=== PATIENT | female | born 1950 | race Caucasian/White ===

== ENCOUNTER 2023-06-23 15:53 | Emergency (ER) | payer MEDICARE, SELFPAY ==
[2023-06-23 15:54] VITALS: BP 150/88
--- NOTE | 2023-06-23 16:42 | ED.GENMED ---
History of Present Illness
<ASHLY Clayton - Last Filed: 06/27/23 22:24>
General
Chief Complaint: Urinary Symptoms
Source: patient
Exam Limitations: none
Time Seen by Provider: 06/23/23 16:21
Nursing documentation reviewed up to this point in time: agreed with
Travel History
Have you had any contact with someone who has COVID-19?: No
Do you have any symptoms of coronavirus? Fever > 100 degrees, chills, cough, shortness of breath, sore throat, loss of taste or smell, muscle aches, or headache?: No
History of Present Illness
History of Present Illness:
9-year-old female presents to the ER for evaluation. Patient has a history of MS and self catheterizes. She has had a UTI for the past several days and has been on Macrobid since Tuesday. She is followed by Dr. Romero.
She called the office because of persistent symptoms of burning frequency and was sent here to the ER for evaluation. She reports that they recommend that she have an IV infusion of antibiotics and that her infection is sensitive to ampicillin and
vancomycin.
She denies any fever chills.
Review of Systems
<ASHLY Clayton - Last Filed: 06/27/23 22:24>
Review of Systems
Allergies reviewed?: Yes
All Other Systems: ROS reviewed and negative except as documented in HPI and ROS
Constitutional: Reports no symptoms
Respiratory: Reports no symptoms
Cardiac: Reports no symptoms
ABD/GI: Reports no symptoms; Denies abdominal pain, nausea or vomiting
: Reports dysuria, urgency and discharge; Denies flank pain
Musculoskeletal: Reports no symptoms; Denies back pain
Skin: Reports no symptoms
Neurological: Reports no symptoms
Psychiatric: Reports no symptoms
Phy Exam
<ASHLY Clayton - Last Filed: 06/27/23 22:24>
General Physical Exam
General Presentation: no apparent distress
General age: appears stated age
General Skin: warm and dry
General Habitus: normal
General Mental: alert
Gastrointestinal Exam
Gastrointestinal Exam: soft and other (+ colostomy abdomen soft nontender)
Neurological Exam
Neurological Exam: alert and oriented x3
Musculoskeletal Exam
Musculoskeletal Exam: full ROM
Skin Exam
Skin Exam: normal color and warm/dry
Psychiatric Exam
Psychiatric Exam: normal mood/affect
Course
<ASHLY Clayton - Last Filed: 06/27/23 22:24>
Orders/Labs/Results
Orders:
Orders
06/23/23 17:12
IV Insert/Care/Rem.- Treatment PRN
Straight cath- Treatment ONCE
0.9% Sodium Chloride 1000 ml [Nss] 1,000 ml IV BOLUS
06/23/23 17:26
Complete Blood Count/With Diff Urgent
Comprehensive Metabolic Panel Urgent
06/23/23 18:06
Urinalysis Reflex To Culture Urgent
Date Specimen was Collected: 06/23/23
Time Specimen was Collected: 17:14
Abnormal Lab Results
06/23/23
17:26
Absolute Lymphs (auto) 0.7 L 10^3/uL
(1.2-3.4)
Absolute Monos (auto) 0.0 L 10^3/uL
(0.1-0.6)
Neutrophils % 87.2 H %
(42.2-75.2)
Lymphocytes % 11.2 L %
(20.5-51.1)
Monocytes % 0.7 L %
(1.7-9.3)
Creatinine 0.4 L mg/dL
(0.6-1.0)
Glucose 125 H mg/dl
(70-99)
Alkaline Phosphatase 154 H U/L
(38-126)
06/23/23 17:26
06/23/23 17:26
Vital Signs
Initial and Last Documented VS:
Initial Vital Signs
Temp Pulse Resp BP Pulse Ox
98.2 F 107 16 150/88 98
06/23/23 15:54 06/23/23 15:54 06/23/23 15:54 06/23/23 15:54 06/23/23 15:54
Last Documented Vital Signs
Temp Pulse Resp BP Pulse Ox
98.2 F 72 18 115/70 98
06/23/23 15:54 06/23/23 19:12 06/23/23 19:12 06/23/23 19:12 06/23/23 19:12
<Tien Sidhu PA-C - Last Filed: 06/23/23 19:18>
Orders/Labs/Results
Orders:
Orders
06/23/23 17:12
IV Insert/Care/Rem.- Treatment PRN
Straight cath- Treatment ONCE
0.9% Sodium Chloride 1000 ml [Nss] 1,000 ml IV BOLUS
06/23/23 17:26
Complete Blood Count/With Diff Urgent
Comprehensive Metabolic Panel Urgent
06/23/23 18:06
Urinalysis Reflex To Culture Urgent
Date Specimen was Collected: 06/23/23
Time Specimen was Collected: 17:14
Abnormal Lab Results
06/23/23
17:26
Absolute Lymphs (auto) 0.7 L 10^3/uL
(1.2-3.4)
Absolute Monos (auto) 0.0 L 10^3/uL
(0.1-0.6)
Neutrophils % 87.2 H %
(42.2-75.2)
Lymphocytes % 11.2 L %
(20.5-51.1)
Monocytes % 0.7 L %
(1.7-9.3)
Creatinine 0.4 L mg/dL
(0.6-1.0)
Glucose 125 H mg/dl
(70-99)
Alkaline Phosphatase 154 H U/L
(38-126)
06/23/23 17:26
06/23/23 17:26
Vital Signs
Initial and Last Documented VS:
Initial Vital Signs
Temp Pulse Resp BP Pulse Ox
98.2 F 107 16 150/88 98
06/23/23 15:54 06/23/23 15:54 06/23/23 15:54 06/23/23 15:54 06/23/23 15:54
Last Documented Vital Signs
Temp Pulse Resp BP Pulse Ox
98.2 F 72 18 115/70 98
06/23/23 15:54 06/23/23 19:12 06/23/23 19:12 06/23/23 19:12 06/23/23 19:12
<ASHLY Clayton - Last Filed: 06/27/23 22:24>
MDM/Problems Addressed
MDM/Problems Addressed:
Patient is a 72-year-old female with MS with history of chronic UTIs. Patient had a UTI for the past 5 days been on Macrobid but still having dysuria. She reports she was sent by her urology office nurses for IV antibiotics.
Patient denies any nausea vomiting fever chills. Patient is afebrile here we will check labs along with urine.
Care of this patient at this time transferred to [facility]
<Tien Sidhu PA-C - Last Filed: 06/23/23 19:18>
*Critical Care Note
Total Time (30-74mins, 75-104mins- exclusive of procedures): Not Applicable
<Tien Sidhu PA-C - Last Filed: 06/23/23 19:18>
Patient Management
Discussion with other providers: [employer] Installation [employer]ic
Escalation/DeEscalation of care consider admission/obs:
06/23/2023 1800 PM: Patient received in signout pending urinalysis. Patient presented to the emergency department with irritation while urinating. Notes that she self caths due to frequent UTIs and urinary leakage and history of MS. Patient
currently on Macrobid for UTI. Lab work is all reassuring without any signs of leukocytosis. Urinalysis is negative without any abnormalities. I discussed these findings with the patient. At this time I did not recommend an antibiotic change but
would prescribe Pyridium for symptoms. I did notify patient's urogynecologist, Dr. Lazcano, and patient states that she can follow-up with her next week if needed.
ED Attending Note
<ASHLY Clayton - Last Filed: 06/27/23 22:24>
-
Portions of this chart may have been created with voice recognition software.� Occasional wrong word or��sound alike� substitutions may have occurred due to the inherent limitations of voice recognition software.
Discharge Plan
Departure
Patient Disposition: Home (Routine Discharge)
Date of Disposition: 06/23/23
Time of Disposition: 18:57
Patient with high blood pressure during this ER visit?: Yes
Discharge Problem:
Dysuria
Instructions: Dysuria, Adult (DC)
Prescriptions:
New
phenazopyridine [Pyridium] 200 mg tablet
200 mg PO PC Qty: 10 0RF
Referrals:
Jenniffer Lazcano DO [Active] -
Leatha Tavarez MD [Family Provider] -
Interventions
Interventions:
*Risk Screen - Suicide Last Done: 06/23/23 16:45
*General Assessment Last Done: 06/23/23 15:54
*Neglect/Abuse Screening Last Done: 06/23/23 16:45
ED- Fall Risk Assessment Last Done: 06/23/23 17:20
*ED COVID-19 Vaccine History Last Done: 06/23/23 15:54
*Nursing Disposition Last Done: 06/23/23 19:13
ED-Female Genitourinary Assessment Last Done: 06/23/23 17:20
Discharge Date and Time
Discharge Date/Time: 06/23/23 19:13
[2023-06-23] MEDS: NSS 1000 IV (17:27)
[2023-06-23 17:43] LABS: % Basophils 0.2 % (0-2); % Eosinophils 0.2 % (0-6); % Immature Granulocytes 0.5 % (0-0.5); % Lymphocytes 11.2 % (20.5-51.1); % Monocytes 0.7 % (1.7-9.3); % Neutrophils 87.2 % (42.2-75.2); Absolute Lymphocytes 0.7 10^3/uL (1.2-3.4); Absolute Neutrophils 5.2 10^3/uL (1.4-6.5); Hematocrit 37.9 % (37.0-47.0); Hemoglobin 12.8 g/dL (12.0-16.0); Mean Corp Hgb Conc. 33.8 g/dL (33.0-37.0); Mean Corpuscular Hgb 28.4 pg (27.0-31.0); Mean Corpuscular Volume 84.2 fL (81.0-99.0); Mean Platelet Volume 8.3 fL (7.4-10.4); Nucleated Red Blood Cells % 0 %; Platelet Count 313 10^3/uL (130-400); Red Cell Dist. Width 12.6 % (11.5-14.5)
[2023-06-23 17:56] LABS: ALT (SGPT) 21 U/L (0-35); AST (SGOT) 23 U/L (14-36); Albumin 4.4 g/dl (3.5-5.0); Alkaline Phosphatase 154 U/L (38-126); Blood Urea Nitrogen 11 mg/dl (7-17); Calcium 9.7 mg/dl (8.4-10.2); Carbon Dioxide 25 mmol/L (22-30); Chloride 107 mmol/L (98-107); Estimated Creatinine Clearance 68 ml/min; Glucose 125 mg/dl (70-99); Potassium 4.4 mmol/L (3.5-5.1); Sodium 141 mmol/L (135-145); Total Bilirubin 0.4 mg/dl (0.2-1.3); eGFR > 60.00
[2023-06-23 18:45] LABS: Urine Albumin Negative (Neg - Trace); Urine Bilirubin Negative (Negative); Urine Character Clear (Clear); Urine Color Yellow; Urine Glucose Negative (Negative); Urine Ketone Negative (Negative); Urine Leukocyte Negative (Negative); Urine Nitrite Negative (Negative); Urine Occult Blood Negative (Negative); Urine Specific Gravity 1.005 (<1.030); Urine Urobilinogen Negative (Neg - 1+)
[2023-06-23 19:12] VITALS: BP 115/70
== END 2023-06-23 19:13 | disposition home or self-care (01) ==
LOC: EMR 15:53
PROVIDERS: Nurse Practitioner; EMERGENCY PHYSICIAN Emergency Medicine; FAMILY PHYSICIAN Internal Medicine
DX: R30.0 Dysuria (principal)
CPT/HCPCS: 99283; 80053; 81003; 85025

== ENCOUNTER → 2023-10-07 15:35 | Outpatient (REF) | payer MEDICARE, SELFPAY ==
[2023-10-07 18:27] LABS: Urine Albumin Negative (Neg - Trace); Urine Bilirubin Negative (Negative); Urine Character Clear (Clear); Urine Glucose Negative (Negative); Urine Ketone Negative (Negative); Urine Leukocyte Negative (Negative); Urine Nitrite Negative (Negative); Urine Occult Blood Negative (Negative); Urine Specific Gravity 1.005 (<1.030); Urine Urobilinogen Negative (Neg - 1+)
== END ==
LOC: REG 15:35
PROVIDERS: ATTENDING PHYSICIAN Urology; FAMILY PHYSICIAN Internal Medicine
DX: N39.0 Urinary tract infection, site not specified (principal)
CPT/HCPCS: 81003; 87077; 87086